=== PATIENT | female | born 1990 | race Caucasian/White ===

== ENCOUNTER 2023-06-26 20:33 | Emergency (ER) | payer MEDICAID, SELFPAY ==
[2023-06-26 21:06] VITALS: BP 138/81; PULSE 75; RESP 18; TEMP 36.4; O2SAT 100; BMI 20.8
--- NOTE | 2023-06-27 00:06 | ED.FEMALEGU ---
HPI - Female Genitourinary General Chief complaint: Urogenital-Female Stated complaint: Frequent urination Time Seen by Provider: 06/26/23 23:32 Source: patient, RN notes reviewed and old records reviewed Mode of arrival: ambulatory Limitations: no limitations History of Present Illness HPI Narrative: 32-year-old female presents for evaluation of urinary urgency and frequency Patient's symptoms started at least a month ago She has seen her doctor several times and has had multiple UAs that were negative She states that she had a pelvic exam and STD testing all of which was negative Pyridium was helping her discomfort but no longer helps She states that her symptoms returned again today Denies any flank pain or abdominal pain Denies any vaginal discharge and urinary She reports that she is currently on her menstrual cycle so does have some vaginal bleeding She has not sexual intercourse since her last STD testing Related Data Previous Rx's Medication Instructions Recorded nitrofurantoin 100 mg PO Q12H 5 days #10 caps 06/27/23 monohydrate/macrocrystals 100 mg capsule (Macrobid) Allergies Allergy/AdvReac Type Severity Reaction Status Date / Time No Known Allergies Allergy Verified 06/26/23 21:06 Review of Systems Constitutional: Constitutional: Denies chills and Denies fever(s) Gastrointestinal: Gastrointestinal: Denies abdominal pain, Denies nausea and Denies vomiting Genitourinary: Genitourinary: Reports difficulty voiding, Reports dysuria, Reports urinary urgency and Denies vaginal discharge Musculoskeletal: Musculoskeletal: Denies back pain PMFSH Social History Social History Smoked in Last 30 Days: No Advance Directives: No Advance Directives Information Provided: Yes Physical Exam Vital Signs: Vital Signs: Last Vital Signs Temp 98.3 F 06/27/23 00:11 Pulse 67 06/27/23 00:11 Resp 17 06/27/23 00:11 BP 124/82 06/27/23 00:11 Pulse Ox 97 06/27/23 00:11 O2 Del Method Room Air 06/27/23 00:11 BMI result Body Mass Index 20.8 Const: General: healthy appearing, comfortable, no acute distress, alert and awake Nutritional Appearance: well nourished Orientation/consciousness: patient oriented x3 HEENT: Head: Yes normocephalic and Yes atraumatic Eyes: Eyelids: Yes eyelids normal Conjunctivae: conjunctivae normal Sclerae: sclerae normal Corneas: corneas normal Pupils: Equal, round and reactive pupils present EOM: EOMs intact bilaterally Resp: Effort & Inspection: normal respiratory effort, able to speak in complete sentences and not labored GI: Inspection: No distended Palpation (GI): Soft to palpation, not firm, nontender, no guarding and not rigid Skin: General skin exam: elasticity normal Neuro: General: patient oriented x3 Cranial nerves: Yes Equal, round and reactive pupils present and Yes Bilaterally intact EOM present Cognition (Neuro): normal cognition Course Reevaluation(s) Reevaluation #1: Patient's workup largely unremarkable. This includes her labs and CT scan. Will discharge the patient with 5 days worth of Macrobid as well as Urology follow-up Time: 01:34 Medical Decision Making Medical Decision Making [facility] Narrative: 32-year-old female presents for evaluation of urinary frequency, urgency on off for least a month. She reports having had multiple negative UAs at her PCP office. Her UA today is positive for nitrates and esterase as well as blood work the patient is on her menstrual cycle. There was no bacteria noted however given her symptoms have been persistent I feel it is appropriate to treat the patient with 5 days worth of antibiotics. Will get a CT scan to evaluate for large bladder mass or obstructive uropathy then may also cause her symptoms. I feel this is less likely. The patient is not . We will check basic labs to make sure patient's renal function is adequate Differential Diagnosis Differential Diagnoses: The differential diagnosis associated with the presentation includes UTI Interstitial cystitis Obstructive uropathy Bladder mass Lab Data [facility] Lab Attestation statement: I reviewed the patient's lab results. No leukocytosis, normal renal function. No significant electrolyte abnormalities. 06/27/23 00:39 06/27/23 00:39 Labs: Lab Results 06/26/23 06/27/23 Range/Units 22:24 00:39 WBC 7.1 (4.8-10.8) X10*3/uL RBC 4.30 (4.20-5.50) X10*6/uL Hgb 12.6 (12.0-16.0) g/dl Hct 37.7 (37.0-47.0) % MCV 87.7 (80.0-98.0) fL MCH 29.3 (27.0-33.0) pg MCHC 33.4 (31.0-35.0) g/dl RDW 13.0 (11.0-16.0) % Plt Count 223 (160-400) X10*3/uL MPV 9.4 (9.4-12.3) fL Immature Gran % (Auto) 0.1 (0.0-0.4) % Neut % (Auto) 52.0 (45-73) % Lymph % (Auto) 37.7 (20-40) % [place] % (Auto) 9.0 (2-11) % Eos % (Auto) 0.8 (0-4) % Baso % (Auto) 0.4 (0-2) % Lymph # (Auto) 2.7 (1.2-4.9) X10*3/uL [place] # (Auto) 0.6 (0.1-1.2) X10*3/uL Eos # (Auto) 0.1 (0.0-0.4) X10*3/uL Baso # (Auto) 0.0 (0.0-0.2) X10*3/uL Abs Immat Gran (auto) 0.01 (0.00-0.03) X10*3/uL Absolute Neuts (auto) 3.7 (2.0-8.3) x10*3/uL Absolute Nucleated RBC 0.000 (0.0-0.012) X10*3/uL Nucleated RBC % (auto) 0.0 (0.0-0.2) /100WBC Sodium 141 (135-145) mmol/L Potassium 3.8 (3.3-5.1) mmol/L Chloride 110 H (96-108) mmol/L Carbon Dioxide 20 L (22-29) mmol/L Anion Gap 15 (12-20) BUN 10 (9-16) mg/dL Creatinine 0.73 (0.5-1.4) mg/dL Estim Creat Clear Calc 92.3 Estimated GFR > 60 Random Glucose 98 (60-115) mg/dL Calcium 9.3 (8.4-10.2) mg/dL Urine Color Red A Urine Appearance Clear Urine pH 5.0 (5.0-9.0) Ur Specific [place] 1.010 (1.005-1.025) Urine Protein 30 (1+) H (Neg-Trace) mg/dL Urine Glucose (UA) Negative (Negative) mg/dL Urine Ketones Negative (Negative) mg/dL Urine Blood Moderate (2+) H (Negative) Urine Nitrite Positive H (Negative) Ur Leukocyte Esterase Moderate (2+) H (Negative) Urine RBC 6-10 H (0-2) /HPF Urine WBC 0-5 (0-5) /HPF Ur Squamous Epith Cells 0-2 (0-2) /HPF Urine Bacteria None Seen (None Seen) Hyaline Casts 0-2 (0-2) /LPF Urine Test NEGATIVE (NEGATIVE) Independent Interpretation I performed an independent interpretation of an: CT Scan (No evidence of hydronephrosis) Radiology Impression Discussion of test interpretation with radiology: I have reviewed the radiologist's reading. (No significant abnormality pertaining to your abdominal pelvic CT scan) Discharge Plan Discharge Clinical Impression: Dysuria Patient Disposition: Home, Self-Care Instructions: Dysuria (ED) Additional Instructions: Your workup in the emergency department today was reassuring. There was no bacteria in your urine, however there was both leukocyte esterase and positive for nitrates which can be a by product of bacteria Take the Macrobid twice daily for the next 5 days If her symptoms persist beyond that, follow-up with urology at the number provided Prescriptions: New nitrofurantoin monohyd/m-cryst [Macrobid] 100 mg capsule 100 mg PO Q12H 5 Days Qty: 10 0RF Rx Instructions: must administer with a meal/food Referrals: Kieran Enciso MD [Physician] - (UTI symptoms x one month)
[2023-06-27 00:11] VITALS: BP 124/82; PULSE 67; RESP 17; TEMP 36.8; O2SAT 97
[2023-06-27 00:43] LABS: MANUAL DIFF FLAG NO
[2023-06-27 00:44] LABS: Basophils Percent Auto 0.4 % (0-2); Eosinophils Absolute Auto 0.1 X10*3/uL (0.0-0.4); Eosinophils Percent Auto 0.8 % (0-4); Hematocrit 37.7 % (37.0-47.0); Hemoglobin 12.6 g/dl (12.0-16.0); Imm Gran Abs Auto 0.01 X10*3/uL (0.00-0.03); Imm Gran Pct Auto 0.1 % (0.0-0.4); Lymphocytes Absolute Auto 2.7 X10*3/uL (1.2-4.9); Lymphocytes Percent Auto 37.7 % (20-40); Mean Corpuscular HGB Conc 33.4 g/dl (31.0-35.0); Mean Corpuscular Hemoglobin 29.3 pg (27.0-33.0); Mean Corpuscular Volume 87.7 fL (80.0-98.0); Mean Platelet Volume 9.4 fL (9.4-12.3); Monocytes Absolute Auto 0.6 X10*3/uL (0.1-1.2); Neutrophils Absolute Auto 3.7 x10*3/uL (2.0-8.3); Platelet Count 223 X10*3/uL (160-400); White Blood Count 7.1 X10*3/uL (4.8-10.8)
[2023-06-27 01:04] LABS: Anion Gap 15 (12-20); Blood Urea Nitrogen 10 mg/dL (9-16); Calcium 9.3 mg/dL (8.4-10.2); Carbon Dioxide 20 mmol/L (22-29); Chloride 110 mmol/L (96-108); Creatinine Clr Calc Pharmacy 92.3; Estimated Glomerular Filt Rate > 60; Glucose Random 98 mg/dL (60-115); Potassium 3.8 mmol/L (3.3-5.1); Sodium 141 mmol/L (135-145)
== END 2023-06-27 01:52 | disposition home or self-care (01) ==
PROVIDERS: Physician Assistant; Emergency Provider Emergency Medicine; PCP Nurse Practitioner Adult Health
DX: R30.0 Dysuria (principal); R35.0 Frequency of micturition; R39.15 Urgency of urination
CPT/HCPCS: 36415; 74176; 80048; 81001; 81003; 81025; 85025; 87086; 99284

== ENCOUNTER 2023-06-28 13:13 | Emergency (ER) | payer MEDICAID, SELFPAY ==
[2023-06-28 13:17] VITALS: BP 121/62; PULSE 59; RESP 16; TEMP 36.6; O2SAT 99; BMI 20.8
--- NOTE | 2023-06-28 13:20 | ED.GENADULT ---
HPI - General Adult General Chief complaint: Abdominal Pain Stated complaint: UTI meds not working Time Seen by Provider: 06/28/23 16:03 Source: patient Mode of arrival: ambulatory Limitations: no limitations History of Present Illness HPI narrative: Patient been having suprapubic pain for last 1 month with dysuria and frequency was seen here yesterday and diagnosed with UTI with nitrite positive no bacteria patient was on her periods started on Macrobid patient comes here has been still there and feels spasm with frequency no fever no chills no flank, does have a family history of kidney stone in mother patient never had kidney stones. Patient had CT scan done yesterday which showed per report no stone but on reviewing the images looks like she had stone in left UVJ junction Related Data Previous Rx's Medication Instructions Recorded nitrofurantoin 100 mg PO Q12H 5 days #10 caps 06/27/23 monohydrate/macrocrystals 100 mg capsule (Macrobid) tamsulosin 0.4 mg capsule (Flomax) 0.4 mg PO BEDTIME #7 caps 06/28/23 tramadol 50 mg tablet 50 mg PO Q6H PRN pain #20 tabs 06/28/23 Allergies Allergy/AdvReac Type Severity Reaction Status Date / Time No Known Allergies Allergy Verified 06/26/23 21:06 Review of Systems Review of Systems: Yes all other systems are reviewed and are negative [facility] Past Medical History Medical History (Updated 06/29/23 @ 00:01 by Background Daemcarlos alberto) No pertinent past medical history Social History Social History Alcohol intake: current Alcohol intake frequency: holidays/special occasions only Smoked in Last 30 Days: No Use of substances other than those prescribed or required for medical reasons: Yes Substance Use Type: Marijuana Substance Use Frequency: Daily Advance Directives: No Patient : No Physical Exam ED Vital Signs: Vital Signs - 24 hr 06/28/23 13:17 06/28/23 15:34 06/28/23 18:00 Temperature 97.8 F 98.2 F 98.2 F Pulse Rate 59 53 59 Respiratory Rate 16 16 16 Blood Pressure 121/62 115/73 102/63 Pulse Oximetry 99 97 98 Oxygen Delivery Method Room Air Room Air Room Air 06/28/23 19:26 Temperature Pulse Rate 57 Respiratory Rate 16 Blood Pressure 116/79 Pulse Oximetry 98 Oxygen Delivery Method Room Air BMI result Body Mass Index 20.8 Appearance: Alert. Oriented X3. No acute distress. Eyes no pallor ENT: Pharynx normal. Oral Mucosa moist Neck: Normal inspection. Neck supple. CVS: Normal heart rate and rhythm. Pulses normal. Respiratory: No respiratory distress. Equal air entry bilateral, no wheezing/rales/rhonchi Abdomen: Soft, mild tenderness suprapubic area no guarding or rebound tenderness Bowel sounds are present, no mass palpable, no CVA tenderness Skin: Skin warm and dry. Normal skin color. Normal skin turgor. Extremities: No lower extremity edema. No calf tenderness Neuro: Oriented X 3. Course Course Course Narrative: RME: 32 yold female presents to the ED left lower quadrant abdominal pain and left flank pain dysuria and urgency. patient has known UtI and is on antibiotics. labs ordered Medications Administered Discontinued Medications Generic Name Dose Route Start Last Admin Trade Name Freq PRN Reason Stop Dose Admin Tamsulosin HCl 0.4 mg 06/28/23 18:43 06/28/23 19:27 Tamsulosin Hcl 0.4 Mg Capsule PO 06/28/23 18:44 0.4 mg ONCE ONE Administration Tramadol HCl 50 mg 06/28/23 18:43 06/28/23 19:27 Tramadol Hcl 50 Mg Tablet PO 06/28/23 18:44 50 mg ONCE ONE Administration Medical Decision Making Differential Diagnosis Differential Diagnoses: The differential diagnosis associated with the presentation includes UTI/ovarian cyst/kidney stone Lab Data MDM Lab Attestation statement: I reviewed the patient's lab results. 06/28/23 13:47 06/28/23 13:47 Labs: Lab Results 06/28/23 06/28/23 Range/Units 13:47 13:52 WBC 11.7 H (4.8-10.8) X10*3/uL RBC 4.59 (4.20-5.50) X10*6/uL Hgb 13.8 (12.0-16.0) g/dl Hct 41.2 (37.0-47.0) % MCV 89.8 (80.0-98.0) fL MCH 30.1 (27.0-33.0) pg MCHC 33.5 (31.0-35.0) g/dl RDW 13.0 (11.0-16.0) % Plt Count 230 (160-400) X10*3/uL MPV 9.7 (9.4-12.3) fL Immature Gran % (Auto) 0.3 (0.0-0.4) % Neut % (Auto) 83.4 H (45-73) % Lymph % (Auto) 10.0 L (20-40) % [place] % (Auto) 5.5 (2-11) % Eos % (Auto) 0.5 (0-4) % Baso % (Auto) 0.3 (0-2) % Lymph # (Auto) 1.2 (1.2-4.9) X10*3/uL [place] # (Auto) 0.7 (0.1-1.2) X10*3/uL Eos # (Auto) 0.1 (0.0-0.4) X10*3/uL Baso # (Auto) 0.0 (0.0-0.2) X10*3/uL Abs Immat Gran (auto) 0.04 H (0.00-0.03) X10*3/uL Absolute Neuts (auto) 9.8 H (2.0-8.3) x10*3/uL Absolute Nucleated RBC 0.000 (0.0-0.012) X10*3/uL Nucleated RBC % (auto) 0.0 (0.0-0.2) /100WBC Sodium 139 (135-145) mmol/L Potassium 4.4 (3.3-5.1) mmol/L Chloride 108 (96-108) mmol/L Carbon Dioxide 21 L (22-29) mmol/L Anion Gap 14 (12-20) BUN 9 (9-16) mg/dL Creatinine 0.96 (0.5-1.4) mg/dL Estim Creat Clear Calc 70.2 Estimated GFR > 60 Random Glucose 135 H (60-115) mg/dL Calcium 9.6 (8.4-10.2) mg/dL Total Bilirubin 0.5 (0.0-1.0) mg/dL AST 15 (5-31) U/L ALT 12 (0-31) U/L Alkaline Phosphatase 44 (39-117) U/L Total Protein 6.4 L (6.5-8.0) g/dL Albumin 4.0 (3.5-5.0) g/dL Urine Color DK YELLOW Urine Appearance Cloudy Urine pH 6.0 (5.0-9.0) Ur Specific [place] 1.025 (1.005-1.025) Urine Protein 100 (2+) H (Neg-Trace) mg/dL Urine Glucose (UA) Negative (Negative) mg/dL Urine Ketones Trace (Negative) mg/dL Urine Blood Large (3+) H (Negative) Urine Nitrite Negative (Negative) Ur Leukocyte Esterase Moderate (2+) H (Negative) Urine RBC >20 H (0-2) /HPF Urine WBC 11-20 (0-5) /HPF Ur Squamous Epith Cells 6-10 (0-2) /HPF Urine Bacteria Trace (None Seen) Hyaline Casts 0-2 (0-2) /LPF Urine Test NEGATIVE (NEGATIVE) Radiology Impression Discussion of test interpretation with radiology: I have reviewed the radiologist's reading. Radiologist Impression: CT/CT abdomen pelvis wo IV con IMPRESSION: 1. Mild left-sided hydroureteronephrosis secondary to a 4 mm calculus at the left ureterovesicular junction. 2. Bilateral adnexal/ovarian hypodense foci the largest measuring up to 2.8 cm. Findings are overwhelmingly likely to represent a normal ovarian follicle. No follow-up imaging recommended. Discharge Plan Discharge Clinical Impression: Calculus of kidney Patient Disposition: Home, Self-Care Instructions: Kidney Stones (ED) Additional Instructions: Drink plenty of fluids Take pain medication as needed for the pain Your stone likely to pass Flomax daily until passed stone Follow-up with urologist Decrease the food containing high oxalate Prescriptions: New tramadol 50 mg tablet 50 mg PO Q6H PRN (Reason: pain) Qty: 20 0RF tamsulosin [Flomax] 0.4 mg capsule 0.4 mg PO BEDTIME Qty: 7 0RF No Action nitrofurantoin monohyd/m-cryst [Macrobid] 100 mg capsule 100 mg PO Q12H 5 Days Qty: 10 0RF Rx Instructions: must administer with a meal/food Referrals: Claudio Dang MD [Physician] - 1 week Interventions: ED Discharge Assessment Last Done: 06/28/23 19:48 Discharge Date/Time: 06/28/23 19:39
[2023-06-28 15:34] VITALS: BP 115/73; PULSE 53; RESP 16; TEMP 36.8; O2SAT 97
--- NOTE | 2023-06-28 15:34 | MHC.EDTECH ---
THIS PCT ASSUMED CARE OF PATIENR AT 1500 ,VITALS TAKEN ,PT RESTING QUIETLY IN BED ,PT MOM AT BEDSIDE .
[2023-06-28 18:00] VITALS: BP 102/63; PULSE 59; RESP 16; TEMP 36.8; O2SAT 98
--- NOTE | 2023-06-28 18:13 | PC.NURSE ---
attempted to start an iv and medicate the pt, but pt refused an line and reports does not want meds at this charge
[2023-06-28 19:26] VITALS: BP 116/79; PULSE 57; RESP 16; O2SAT 98
== END 2023-06-28 19:39 | disposition home or self-care (01) ==
PROVIDERS: Emergency Provider Internal Medicine; PCP Nurse Practitioner Adult Health
DX: N39.0 Urinary tract infection, site not specified (principal); N20.0 Calculus of kidney; R10.32 Left lower quadrant pain; Z79.899 Other long term (current) drug therapy
CPT/HCPCS: 36415; 74176; 80053; 81001; 81003; 81025; 85025; 87086; 96361; 96374; 96375; 99284

== ENCOUNTER 2023-08-10 14:40 | Outpatient (AMB) | payer MEDICAID, SELFPAY ==
--- NOTE | 2023-08-10 14:51 | A.OFFVIS_ITS ---
Intake Intake Visit Reasons: nephrolithiasis Intake Note: New Patient is Present for Stones Urology Medication: None Antibiotic Allergies: None Blood Thinners:None Patient states that she is feeling a lot better than she did when she had stones. She believes that she may have passed them. No pain Allergies No Known Allergies Allergy (Verified 08/10/23 14:59) HPI HPI Comments History of Present Illness Details Kristina is a 32 year old female who is here for evaluation for kidney stones. The patient states she thinks she passed the stone as the pain is gone. She had left sided flank pain. CT imaging -- reviewed -- left hydro due to distal ureteral stone I have discussed at length diet modification to decrease risk of forming more kidney stones. I have discussed low oxalate diet and specific foods to avoid including certain green leafy vegetables, chocalate, nuts, tea, beets, rubarb; low sodium, decreased use of animal protein and the importance of hydration drinking up to 2-2.5 liters of fluids and use of adding lemon to water to increase citrate in the diet. A pamphlet is also provided today. Plan: Metabolic w/u [facility] Medical History No pertinent past medical history Social History Alcohol intake: current Alcohol intake frequency: holidays/special occasions only Substance Use Type: Marijuana Review of Systems Const All systems reviewed & are unremarkable except as noted in HPI and below Reports no additional complaints Eyes Reports no additional complaints ENT Reports no additional complaints Card Denies dyspnea Resp Denies cough and Denies dyspnea GI Reports no additional complaints Reports no additional complaints Musc Reports no additional complaints Skin/Breast Denies rash and Denies unusual bruising Neuro Reports no additional complaints Psych Reports no additional complaints Endo Reports no additional complaints Prashant/Lymph Reports no additional complaints Aller/Immun Reports no additional complaints Physical Exam Const General: cooperative, healthy appearing and no acute distress Orientation/consciousness: patient oriented x3 HEENT Head: Yes normal to inspection, Yes normocephalic and Yes atraumatic Eyes Conjunctivae: conjunctivae normal Neck Neck: Yes normal visual inspection and Yes trachea midline Chest Chest palpation & inspection: normal inspection of the chest Resp Effort & Inspection: normal respiratory effort Cardio Rate: regular rate GI Inspection: Yes normal to inspection Skin General skin exam: no rashes or lesions noted Neuro General: patient oriented x3 Extrem General: No edema Psych Appearance: grossly normal Results AMB Urinalysis, Automated UA Leukoctes 0 Maile/uL Last Edit by Haley Garza [facility] on 08/10/23 15:06 UA Nitrite Negative Last Edit by Haley Garza A on 08/10/23 15:06 UA Urobilinogen 0.2 mg/dL Last Edit by Haley Garza [facility] on 08/10/23 15:0 6 UA Protein 30 mg/dL Last Edit by Haley Garza A on 08/10/23 15:06 UA pH 6.0 Last Edit by Haley Garza [facility] on 08/10/23 15:06 UA Blood 0 Tristen/uL Last Edit by Haley Garza [facility] on 08/10/23 15:06 UA Specific [place] 1.020 Last Edit by Haley Garza [facility] on 08/10/23 15: 06 UA Ketone Positive Last Edit by Haley Garza [facility] on 08/10/23 15:06 UA Bilirubin 0 mg/dL Last Edit by Haley Garza [facility] on 08/10/23 15:06 UA Glucose 0 mg/dL Last Edit by Haley Garza [facility] on 08/10/23 15:06 Results Reviewed Results Reviewed: Laboratory Last Values Urine pH (Auto) 6.0 08/10/23 14:59 Specific [place] (Auto) 1.020 08/10/23 14:59 Urine Protein (Auto) 30 mg/dL 08/10/23 14:59 Glucose (UA)(Auto) 0 mg/dL 08/10/23 14:59 Urine Ketones (Auto) Positive 08/10/23 14:59 Urine Blood (Auto) 0 Tristen/uL 08/10/23 14:59 Urine Nitrite (Auto) Negative 08/10/23 14:59 Urine Bilirubin (Auto) 0 mg/dL 08/10/23 14:59 Urine Urobilinogen (Auto) 0.2 mg/dL 08/10/23 14:59 Leukocyte Esterase (Auto) 0 [place]/uL 08/10/23 14:59 Date of Service: 06/28/23 EXAMINATION: CT ABDOMEN AND PELVIS WITHOUT CONTRAST CLINICAL INFORMATION: Flank pain question stone COMPARISON: CT abdomen from 06/27/2023 TECHNIQUE: Multidetector volumetric imaging was performed from the superior aspect of the liver through the pubic symphysis. Sagittal and coronal reformatted images were obtained on the technologist's workstation. This CT examination was performed using dose optimization techniques as appropriate, variously including the following: *Automated exposure control *Adjustment of mA and/or kV according to patient size (this includes techniques or standardized protocols for targeted exams where dose is matched to indication/reason for exam; i.e. extremities or head) *Use of iterative reconstruction technique DLP: 318 mGy-cm FINDINGS: LUNG BASES: Atelectatic changes in the right middle lobe. LIVER, GALLBLADDER, AND BILIARY TREE: The liver is normal in size, shape, and attenuation. No focal hepatic lesion or biliary ductal dilatation is present. The gallbladder is unremarkable with no evidence of radiopaque gallstones, gallbladder wall thickening, or obvious pericholecystic inflammatory changes. PANCREAS: Unremarkable. SPLEEN: Unremarkable. ADRENAL GLANDS: Unremarkable. KIDNEYS AND URETERS: Mild left-sided hydroureteronephrosis secondary to a 4 mm calculus at the left ureterovesicular junction. No right-sided nephrolithiasis or hydronephrosis. BLADDER: Unremarkable. GASTROINTESTINAL TRACT: The small and large bowel are unremarkable. The appendix is unremarkable. ABDOMINAL WALL: No significant hernia is appreciated. LYMPH NODES: Normal. VASCULAR: Unremarkable. PELVIC VISCERA: Anteverted uterus. T-shaped IUD in place. Bilateral adnexal/ovarian hypodense foci the largest measuring up to 2.8 cm. Findings are overwhelmingly likely to represent a normal ovarian follicle. No follow-up imaging recommended. OSSEOUS STRUCTURES: Unremarkable. IMPRESSION: 1. Mild left-sided hydroureteronephrosis secondary to a 4 mm calculus at the left ureterovesicular junction. 2. Bilateral adnexal/ovarian hypodense foci the largest measuring up to 2.8 cm. Findings are overwhelmingly likely to represent a normal ovarian follicle. No follow-up imaging recommended. Assessment & Plan Assessment & Plan (1) Calculus of kidney: Code(s): N20.0 - Calculus of kidney Plan Metabolic w/u 24 hr urine Orders: Orders AMB Urinalysis Automated 08/10/23 Z13.9 - Encounter for screening, unspecified Patient Instructions: The patient had an opportunity to ask questions regarding treatment plan. All questions were answered. Imaging, Laboratory studies and physical exam results were discussed and reviewed in detail. No major barriers to understanding were identified. The patient expressed understanding and agreement with the above treatment plan. The patient is aware they should contact our office by phone for worsening of their current condition or the appearance of new symptoms. Compliance is encouraged with any medications and followup testing that is ordered. It is a privilege to be allowed the opportunity to participate in the urologic care of your patient. If you have any questions or concerns regarding treatment for the above conditions please do not hesitate to contact me. The office telephone contact is [phone]. This note is constructed in part using voice recognition software. While every effort has been made to ensure accuracy manufacturing management associate errors may have been included. Yours sincerely, Kieran Enciso MD Coding Level of Care Code New Pt Level 3 (76480) Diagnoses Calculus of kidney N20.0
== END 2023-08-10 15:42 | disposition home or self-care (01) ==
PROVIDERS: PCP Nurse Practitioner Adult Health; Visit Provider Urology
DX: N20.0 Calculus of kidney (principal)
CPT/HCPCS: 99203

== ENCOUNTER → 2023-08-10 14:40 | Outpatient (BNVA) | payer MEDICAID, SELFPAY | PROVIDERS: PCP Nurse Practitioner Adult Health; Visit Provider Urology | DX: N20.0 Calculus of kidney (principal) | CPT/HCPCS: 81003; 99202 ==

== ENCOUNTER 2023-10-19 15:34 | Outpatient (AMB) | payer MEDICAID, SELFPAY ==
--- NOTE | 2023-10-19 15:48 | A.OFFVIS_ITS ---
Intake Intake Visit Reasons: 3m/litholink Intake Note: Patient presents today for a follow-up on Litholoink Results Meds- Tamsulosin( Patient stated not taking) Allergies to Antibiotic- No Known Allergies Blood Thinner- None Short Filler Bunch Machine Operator Required: No Accompanied by: Self / Same As Patient Allergies No Known Allergies Allergy (Verified 10/19/23 15:50) HPI HPI Comments History of Present Illness Details Kristina is a 32 year old female who is here for evaluation for kidney stones. 10/19/23--Discussed 24 hour urine results : Total volume 1.22 mL, Calcium 214 mg; Oxalate 25 mg, Sodium 200, Citrate 460 mg. Instructed on importance of fluid intake, Low oxalate diet, low sodium diet. Review of chart: 08/10/23- The patient states she thinks she passed the stone as the pain is gone. She had left sided flank pain. CT imaging -- reviewed -- left hydro due to distal ureteral stone I have discussed at length diet modification to decrease risk of forming more kidney stones. I have discussed low oxalate diet and specific foods to avoid including certain green leafy vegetables, chocalate, nuts, tea, beets, rubarb; low sodium, decreased use of animal protein and the importance of hydration drinking up to 2-2.5 liters of fluids and use of adding lemon to water to increase citrate in the diet. A pamphlet is also provided today. 10/19/23-- Plan: Monitor Kidneys, FU in 9 months with renal sono prior [facility] Medical History No pertinent past medical history Social History Alcohol intake: current Alcohol intake frequency: holidays/special occasions only Substance Use Type: Marijuana Review of Systems Const All systems reviewed & are unremarkable except as noted in HPI and below Reports no additional complaints Eyes Reports no additional complaints ENT Reports no additional complaints Card Denies dyspnea Resp Denies cough and Denies dyspnea GI Reports no additional complaints Reports no additional complaints Musc Reports no additional complaints Skin/Breast Denies rash and Denies unusual bruising Neuro Reports no additional complaints Psych Reports no additional complaints Endo Reports no additional complaints Prashant/Lymph Reports no additional complaints Aller/Immun Reports no additional complaints Results AMB Urinalysis, Automated UA Leukoctes 0 Maile/uL Last Edit by [facility] on 10/19/23 15 :59 UA Nitrite Negative Last Edit by [facility], [facility] on 10/19/23 15: 59 UA Urobilinogen 0.2 mg/dL Last Edit by [facility], [facility] on 4 15:59 UA Protein 0 mg/dL Last Edit by [facility], [facility] on 10/19/23 15:59 UA pH 7.5 Last Edit by [facility], [facility] on 10/19/23 15:59 UA Blood 0 Tristen/uL Last Edit by [facility], [facility] on 10/19/23 15:59 UA Specific [place] 1.015 Last Edit by [facility], [facility] on 15:59 UA Ketone Negative Last Edit by [facility], [facility] on 10/19/23 15:5 9 UA Bilirubin 0 mg/dL Last Edit by [facility], [facility] on 10/19/23 15: 59 UA Glucose 0 mg/dL Last Edit by [facility] on 10/19/23 15:59 Results Reviewed Results Reviewed: Laboratory Last Values Urine pH (Auto) 7.5 10/19/23 15:57 Specific [place] (Auto) 1.015 10/19/23 15:57 Urine Protein (Auto) 0 mg/dL 10/19/23 15:57 Glucose (UA)(Auto) 0 mg/dL 10/19/23 15:57 Urine Ketones (Auto) Negative 10/19/23 15:57 Urine Blood (Auto) 0 Tristen/uL 10/19/23 15:57 Urine Nitrite (Auto) Negative 10/19/23 15:57 Urine Bilirubin (Auto) 0 mg/dL 10/19/23 15:57 Urine Urobilinogen (Auto) 0.2 mg/dL 10/19/23 15:57 Leukocyte Esterase (Auto) 0 Maile/uL 10/19/23 15:57 Assessment & Plan Assessment & Plan (1) Calculus of kidney: Code(s): N20.0 - Calculus of kidney Plan Monitor Kidneys, FU in 9 months with renal sono prior Orders: Orders AMB Urinalysis Automated 10/19/23 R33.9 - Retention of urine, unspecified US renal BI 8 Months N20.0 - Calculus of kidney, Z87.442 - Personal history of urinary calculi Patient Instructions: The patient had an opportunity to ask questions regarding treatment plan. All questions were answered. Imaging, Laboratory studies and physical exam results were discussed and reviewed in detail. No major barriers to understanding were identified. The patient expressed understanding and agreement with the above treatment plan. The patient is aware they should contact our office by phone for worsening of their current condition or the appearance of new symptoms. Compliance is encouraged with any medications and followup testing that is ordered. It is a privilege to be allowed the opportunity to participate in the urologic care of your patient. If you have any questions or concerns regarding treatment for the above conditions please do not hesitate to contact me. The office telephone contact is [phone]. This note is constructed in part using voice recognition software. While every effort has been made to ensure accuracy office services representative errors may have been included. Yours sincerely, Kieran Enciso MD Coding Level of Care Code Est Pt Level 3 (45182) Diagnoses Calculus of kidney N20.0
== END 2023-10-19 16:13 | disposition home or self-care (01) ==
PROVIDERS: PCP Nurse Practitioner Adult Health; Visit Provider Urology
DX: N20.0 Calculus of kidney (principal)
CPT/HCPCS: 99213

== ENCOUNTER → 2023-10-19 15:34 | Outpatient (BNVA) | payer MEDICAID, SELFPAY | PROVIDERS: PCP Nurse Practitioner Adult Health; Visit Provider Urology | DX: N20.0 Calculus of kidney (principal) | CPT/HCPCS: 81003; 99212 ==

== ENCOUNTER 2024-06-06 16:05 | Outpatient (REF) | payer OTHER, SELFPAY ==
--- NOTE | ~2024-06-06 | US_ITS ---
EXAMINATION: US RETROPERITONEAL LIMITED (RENAL ONLY) CLINICAL INFORMATION: Calculus of kidney. COMPARISON: CT abdomen and pelvis 06/28/2023. TECHNIQUE: Real-time imaging of the kidneys. FINDINGS: RIGHT KIDNEY: 10.6 x 2.9 x 5.0 cm (SAG x AP x TRV). The kidney is normal in size, contour, and echogenicity. Renal cortical thickness is normal. No calculi or focal parenchymal lesions. No hydronephrosis. LEFT KIDNEY: 10.4 x 5.6 x 4.7 cm (SAG x AP x TRV). The kidney is normal in size, contour, and echogenicity. Renal cortical thickness is normal. No calculi or focal parenchymal lesions. No hydronephrosis. US/US renal BI IMPRESSION: No significant abnormality. Electronically signed by: Cinthya Devlin MD 06/14/2024 04:04 PM EDT
== END 2024-06-06 16:06 | disposition home or self-care (01) ==
LOC: HO.US 16:05
PROVIDERS: PCP Nurse Practitioner Adult Health; Visit Provider Urology
DX: N20.0 Calculus of kidney (principal); Z87.442 Personal history of urinary calculi
CPT/HCPCS: 76775

== ENCOUNTER 2024-07-22 08:29 | Outpatient (AMB) | payer OTHER, SELFPAY ==
--- NOTE | 2024-07-22 08:44 | MHC.OFFVIS ---
Intake Visit Reasons: 9m/US Intake Note: Patient is present for 9m/us Urology Medication:none Antibiotic Allergy:none Blood Thinner:none Wireworker Supervisor Required: No Allergies No Known Allergies Allergy (Verified 07/22/24 08:45) HPI Comments Details: 07/22/24--Kristina is a 33-year-old female who is being followed for history of kidney stones. She is here for follow-up. I have discussed recent renal ultrasound-06/06/24 is within normal limits. The patient has been advised on diet modification, least on her 24 hour urine reinforced low-sodium diet and importance of adequate hydration. This was her 1st time stone and we will follow her on a as needed basis. Review of chart: Kristina is a 32 year old female who is here for evaluation for kidney stones. 10/19/23--Discussed 24 hour urine results: Total volume 1.22 mL, Calcium 214 mg; Oxalate 25 mg, Sodium 200, Citrate 460 mg. Instructed on importance of fluid intake, Low oxalate diet, low sodium diet. 08/10/23-The patient states she thinks she passed the stone as the pain is gone. She had left sided flank pain. CT imaging -- reviewed -- left hydro due to distal ureteral stone. I have discussed at length diet modification to decrease risk of forming more kidney stones. I have discussed low oxalate diet and specific foods to avoid including certain green leafy vegetables, chocalate, nuts, tea, beets, rubarb; low sodium, decreased use of animal protein and the importance of hydration drinking up to 2-2.5 liters of fluids and use of adding lemon to water to increase citrate in the diet. A pamphlet is also provided today. FORMERLY [facility] Medical History No pertinent past medical history Social History Alcohol intake: current Alcohol intake frequency: holidays/special occasions only Substance Use Type: Marijuana Review of Systems Const All systems reviewed & are unremarkable except as noted in HPI and below Reports no additional complaints Eyes Reports no additional complaints ENT Reports no additional complaints Card Reports no additional complaints Resp Reports no additional complaints GI Reports no additional complaints Reports as per HPI Musc Reports no additional complaints Skin/Breast Reports system reviewed and no additional complaints, except as documented Neuro Reports no additional complaints Psych Reports no additional complaints Endo Reports no additional complaints Prashant/Lymph Reports no additional complaints Aller/Immun Reports no additional complaints Results Reviewed Results Reviewed: Date of Service: 06/06/24 US RETROPERITONEAL LIMITED (RENAL ONLY) CLINICAL INFORMATION: Calculus of kidney. COMPARISON: CT abdomen and pelvis 06/28/2023. TECHNIQUE: Real-time imaging of the kidneys. FINDINGS: RIGHT KIDNEY: 10.6 x 2.9 x 5.0 cm (SAG x AP x TRV). The kidney is normal in size, contour, and echogenicity. Renal cortical thickness is normal. No calculi or focal parenchymal lesions. No hydronephrosis. LEFT KIDNEY: 10.4 x 5.6 x 4.7 cm (SAG x AP x TRV). The kidney is normal in size, contour, and echogenicity. Renal cortical thickness is normal. No calculi or focal parenchymal lesions. No hydronephrosis. IMPRESSION: No significant abnormality. Date of Service: 06/28/23 EXAMINATION: CT ABDOMEN AND PELVIS WITHOUT CONTRAST CLINICAL INFORMATION: Flank pain question stone COMPARISON: CT abdomen from 06/27/2023 TECHNIQUE: Multidetector volumetric imaging was performed from the superior aspect of the liver through the pubic symphysis. Sagittal and coronal reformatted images were obtained on the technologist's workstation. This CT examination was performed using dose optimization techniques as appropriate, variously including the following: *Automated exposure control *Adjustment of mA and/or kV according to patient size (this includes techniques or standardized protocols for targeted exams where dose is matched to indication/reason for exam; i.e. extremities or head) *Use of iterative reconstruction technique DLP: 318 mGy-cm FINDINGS: LUNG BASES: Atelectatic changes in the right middle lobe. LIVER, GALLBLADDER, AND BILIARY TREE: The liver is normal in size, shape, and attenuation. No focal hepatic lesion or biliary ductal dilatation is present. The gallbladder is unremarkable with no evidence of radiopaque gallstones, gallbladder wall thickening, or obvious pericholecystic inflammatory changes. PANCREAS: Unremarkable. SPLEEN: Unremarkable. ADRENAL GLANDS: Unremarkable. KIDNEYS AND URETERS: Mild left-sided hydroureteronephrosis secondary to a 4 mm calculus at the left ureterovesicular junction. No right-sided nephrolithiasis or hydronephrosis. BLADDER: Unremarkable. GASTROINTESTINAL TRACT: The small and large bowel are unremarkable. The appendix is unremarkable. ABDOMINAL WALL: No significant hernia is appreciated. LYMPH NODES: Normal. VASCULAR: Unremarkable. PELVIC VISCERA: Anteverted uterus. T-shaped IUD in place. Bilateral adnexal/ovarian hypodense foci the largest measuring up to 2.8 cm. Findings are overwhelmingly likely to represent a normal ovarian follicle. No follow-up imaging recommended. OSSEOUS STRUCTURES: Unremarkable. IMPRESSION: 1. Mild left-sided hydroureteronephrosis secondary to a 4 mm calculus at the left ureterovesicular junction. 2. Bilateral adnexal/ovarian hypodense foci the largest measuring up to 2.8 cm. Findings are overwhelmingly likely to represent a normal ovarian follicle. No follow-up imaging recommended. Assessment & Plan Assessment & Plan (1) Calculus of kidney: Code(s): N20.0 - Calculus of kidney Category: Medical Plan I have discussed recent renal ultrasound is within normal limits. The patient has been advised on diet modification, least on her 24 hour urine reinforced low-sodium diet and importance of adequate hydration. This was her 1st time stone and we will follow her on a as needed basis. Orders: Orders AMB Urinalysis Automated Today Z13.9 - Encounter for screening, unspecified Patient Instructions: The patient had an opportunity to ask questions regarding treatment plan. The patient expressed understanding and agreement with the above treatment plan. The patient is aware they should contact our office by phone for worsening of their current condition or the appearance of new symptoms. Compliance is encouraged with any medications and followup testing that is ordered. It is a privilege to be allowed the opportunity to participate in the urologic care of your patient. If you have any questions or concerns regarding treatment for the above conditions please do not hesitate to contact me. The office telephone contact is [phone]. This note is constructed in part using voice recognition software. While every effort has been made to ensure accuracy ticket collector or usher errors may have been included. Yours sincerely, Kieran Enciso MD Coding Level of Care Code Est Pt Level 3 (62487) Diagnoses Calculus of kidney N20.0
== END 2024-07-22 09:02 | disposition home or self-care (01) ==
PROVIDERS: PCP Nurse Practitioner Adult Health; Visit Provider Urology
DX: Z13.9 Encounter for screening, unspecified (principal); N20.0 Calculus of kidney
CPT/HCPCS: 99213

== ENCOUNTER → 2024-07-22 08:29 | Outpatient (BNVA) | payer OTHER, SELFPAY | PROVIDERS: PCP Nurse Practitioner Adult Health; Visit Provider Urology | DX: N20.0 Calculus of kidney (principal); Z13.9 Encounter for screening, unspecified | CPT/HCPCS: 81003; 99212 ==